=== PATIENT | female | born 1970 | race Caucasian/White ===

== ENCOUNTER 2017-04-24 17:48 | Emergency (ER) | payer BC ==
[2017-04-24 18:31] LABS: ALBUMIN 4.1 g/dL (3.2-5.5); ALBUMIN/GLOBULIN RATIO 1.1 (1.0-2.2); BILIRUBIN,TOTAL 1.4 mg/dL (0.2-1.0); CALCIUM 9.3 mg/dL (8.5-10.3); CREATININE 0.6 mg/dL (0.4-1.0); TOTAL PROTEIN 7.8 g/dL (6.7-8.2)
[2017-04-24 18:32] LABS: BASOPHILS % (AUTO) 0.5 %; EOSINOPHILS # (AUTO) 0.2 10^3/uL (0.0-0.7); EOSINOPHILS % (AUTO) 2.1 %; HGB - HEMOGLOBIN 14.3 g/dL (12.0-16.0); LYMPHOCYTES # (AUTO) 3.6 10^3/uL (1.5-3.5); LYMPHOCYTES % (AUTO) 45.3 %; MEAN CORPUSCULAR HEMOGLOBIN 30.1 pg (27.0-31.0); MEAN CORPUSCULAR HGB CONC 34.9 g/dL (32.0-36.0); MEAN CORPUSCULAR VOLUME 86.1 fL (81.0-99.0); MEAN PLATELET VOLUME 7.7 fL (7.9-10.8); MONOCYTES # (AUTO) 0.5 10^3/uL (0.0-1.0); MONOCYTES % (AUTO) 6.7 %; NEUTROPHILS # (AUTO) 3.6 10^3/uL (1.5-6.6); NEUTROPHILS % (AUTO) 45.4 %; PLT - PLATELET COUNT 363 10^3/uL (130-450); RED BLOOD COUNT 4.77 10^6/uL (4.20-5.40); WHITE BLOOD COUNT 7.9 x10^3/uL (4.8-10.8)
[2017-04-24 18:34] LABS: BILIRUBIN,URINE NEGATIVE (NEGATIVE); GLUCOSE, URINE (UA) NEGATIVE (NEGATIVE); KETONES,URINE (UA) NEGATIVE (NEGATIVE); LEUKOCYTE ESTERASE, URINE NEGATIVE (NEGATIVE); NITRITE,URINE NEGATIVE (NEGATIVE); OCCULT BLOOD,URINE NEGATIVE (NEGATIVE); PROTEIN,URINE NEGATIVE (NEGATIVE); UROBILINOGEN,URINE 0.2 (NORMAL) E.U./dL (NORMAL)
[2017-04-24 18:35] LABS: CLARITY,URINE CLEAR (CLEAR); HCG UR QUAL NEGATIVE
--- NOTE | 2017-04-24 20:46 | ED Physician Documentation ---
PD HPI ABD PAIN - Stated complaint Stated Complaint: BACK PX - Chief complaint Chief Complaint: Abd Pain - History obtained from History obtained from: Patient - History of Present Illness Timing - onset: How many weeks ago (1) Timing - details: Abrupt onset, Intermittant, Waxing and waning Quality: Pain Location: RUQ Radiation: Lower back Improved by: Other (no ameliorating factors) Worsened by: Other (no exacerbating factors) Associated symptoms: No: Fever, Nausea, Vomiting, Diarrhea, Constipation Similar symptoms before: No diagnosis Recently seen: Clinic (evaluated by PMD 1 week ago, US was recommended but patient opted to wait to see if symptoms improved without testing/treatment. she presents at this time due to worsening pain) Review of Systems Constitutional: reports: Reviewed and negative Cardiac: reports: Reviewed and negative Respiratory: reports: Reviewed and negative GI: reports: Abdominal Pain. denies: Nausea, Vomiting, Constipation, Diarrhea : denies: Dysuria, Frequency Skin: denies: Rash PD PAST MEDICAL HISTORY - Past Medical History Past Medical History: Yes Respiratory: Asthma - Past Surgical History Past Surgical History: No - Present Medications Home Medications: Ambulatory Orders Medication Instructions Recorded Confirmed Anxiety Med 04/24/17 Multivit with Iron-Minerals 1 each PO 04/24/17 [Cerovite Jr] traMADol [Ultram] 100 mg PO Q6H PRN #20 tablet 04/25/17 - Allergies Allergies/Adverse Reactions: Allergies Allergy/AdvReac Type Severity Reaction Status Date / Time Cephalosporins Allergy Rash Verified 04/24/17 17:58 ibuprofen [From Motrin] Allergy Unknown Verified 04/24/17 17:58 Sulfa (Sulfonamide Allergy Hives Verified 04/24/17 17:58 Antibiotics) - Social History Does the pt smoke?: No Smoking Status: Never smoker Does the pt drink ETOH?: No Does the pt have substance abuse?: No - Immunizations Immunizations are current?: Yes - POLST Patient has POLST: No PD ED PE NORMAL - Vitals Vital signs reviewed: Yes - General General: Alert and oriented X 3, No acute distress, Well developed/nourished - Cardiac Cardiac: RRR, No murmur - Respiratory Respiratory: No respiratory distress, Clear bilaterally - Abdomen Abdomen: Normal bowel sounds, Soft, Non tender, Non distended, No organomegaly - Back Back: No CVA TTP - Derm Derm: No rash Results - Vitals Vitals: Oxygen O2 Source Room air - Labs Labs: Laboratory Tests 04/24/17 04/24/17 04/24/17 18:06 18:10 18:10 WBC 7.9 RBC 4.77 Hgb 14.3 Hct 41.1 MCV 86.1 MCH 30.1 MCHC 34.9 RDW 13.0 Plt Count 363 MPV 7.7 L Neut # 3.6 Lymph # 3.6 H [place] # 0.5 Eos # 0.2 Baso # 0.0 Absolute Nucleated RBC 0.00 Nucleated RBC % 0.0 Sodium 136 Potassium 3.3 L Chloride 99 L Carbon Dioxide 27 Anion Gap 10.0 BUN 6 Creatinine 0.6 Estimated GFR (MDRD) 107 Glucose 93 Calcium 9.3 Total Bilirubin 1.4 H AST 32 ALT 34 Alkaline Phosphatase 60 Total Protein 7.8 Albumin 4.1 Globulin 3.7 Albumin/Globulin Ratio 1.1 Lipase 19 L Urine Color YELLOW Urine Clarity CLEAR Urine pH 6.0 Ur Specific [place] <=1.005 Urine Protein NEGATIVE Urine Glucose (UA) NEGATIVE Urine Ketones NEGATIVE Urine Occult Blood NEGATIVE Urine Nitrite NEGATIVE Urine Bilirubin NEGATIVE Urine Urobilinogen 0.2 (NORMAL) Ur Leukocyte Esterase NEGATIVE Ur Microscopic Review NOT INDICATED Urine Culture Comments NOT INDICATED Urine HCG, Qual NEGATIVE - Rads (name of study) RUQ US Radiology: Prelim report reviewed, See rad report PD MEDICAL DECISION MAKING - ED course Complexity details: reviewed results, re-evaluated patient, considered differential, d/w patient Departure - Departure Disposition: 01 Home, Self Care Clinical Impression: Abdominal pain Condition: Good Instructions: ED Abdominal Pain Unkn Cause Follow-Up: Dunia Dorman PA-C [Primary Care Provider] - Within 1 week Prescriptions: traMADol [Ultram] 100 mg PO Q6H PRN #20 tablet PRN Reason: Pain Discharge Date/Time: 04/25/17 00:17
[2017-04-24] MEDS ORDERED: traMADol 50 MG TABLET PO STA (22:05)
--- NOTE | 2017-04-24 23:30 | Ultrasound Report ---
EXAM: ABDOMEN ULTRASOUND LIMITED, RUQ EXAM DATE: 04/24/2017 10:41 PM. CLINICAL HISTORY: RUQ pain. COMPARISON: 05/14/2015 CT abdomen. TECHNIQUE: Real-time scanning was performed with static images obtained. FINDINGS: Liver: Normal in size and echotexture. 14.6 cm. Main portal vein flow: Hepatopetal. Gallbladder: There is a 3 mm gallbladder polyp. No gallstones, gallbladder wall thickening or pericho lecystic fluid collections. Biliary System: CBD measures 5 mm. No intrahepatic or extrahepatic ductal dilatation. Other: No right hydronephrosis. The visualized pancreas is unremarkable. IMPRESSION: 1. Gallbladder polyp. No evidence of cholecystitis or bile duct obstruction. [facility] Referring Provider Line: [phone] SITE ID: [id number]
[2017-04-25 00:17] VITALS: BP 132/89
== END 2017-04-25 00:17 | disposition home or self-care (01) ==
LOC: ED 17:48
DX: R10.31 Right lower quadrant pain (principal)
CPT/HCPCS: 36415; 76705; 80053; 81003; 81025; 83690; 85025; 99283; A9270; 81001; 87086

== ENCOUNTER 2017-05-24 09:05 | Outpatient (CLI) | payer BC ==
[2017-05-24] MEDS ORDERED: SINCALIDE 5 MCG VIAL ONE (09:51)
[2017-05-24] MEDS ORDERED: SINCALIDE IV ONE (10:39)
[2017-05-24] MEDS ORDERED: SODIUM CHLORIDE 0.9% IV ONE (10:39)
--- NOTE | 2017-05-24 17:15 | Nuclear Medicine Report ---
EXAM: HEPATOBILIARY SCAN WITH CCK/KINEVAC ADMINISTRATION EXAM DATE: 05/24/2017 12:34 PM. CLINICAL HISTORY: ABDOMINAL PAIN, RUQ. COMPARISON: None. TECHNIQUE: Following the intravenous administration of 5.3 mCi of Tc99m Mebrofenin, a hepatobiliary s can was done centered on the liver and gallbladder in multiple sequential images and projections. Following the intravenous administration of 1.4 mcg of CCK/ Kinevac over the course of approximately 60 minutes, dynamic imaging was done and the gallbladder ejection fraction was calculated. FINDINGS: Normal extraction of tracer from the blood pool indicating normal hepatocellular function. The liver size and shape is grossly within normal limits. Appearance of tracer in the biliary tree as early as 10 minutes, within normal limits. Appearance of tracer in the gallbladder as early as 15 minutes, within normal limits, with good progr ession of filling throughout the remainder of the initial hour. Appearance of tracer in the small bowel approximately 15 minutes following initiation of CCK administ ration. With CCK administration, the gallbladder demonstrates an effective contraction. The gallbladder eject ion fraction is calculated to be 88%, well above the lower limit of normal of 38% for a 60-minute inj ection. No evidence of enteric reflux into the stomach. No significant collection of tracer remaining in the common bile duct by the end of the study. IMPRESSION: 1. No scintigraphic evidence of acute cholecystitis. 2. Patent common bile duct. 3. Gallbladder ejection fraction is in the normal range. 4. Mildly delayed biliary-bowel transit. This is a nonspecific finding that can be seen in a subset o f normal patients but could reflect a component of distal functional or mechanical obstruction. [facility] Referring Provider Line: [phone] SITE ID: [id number]
== END 2017-05-24 09:06 | disposition home or self-care (01) ==
LOC: DI 09:05
PROVIDERS: ATTEND Physician Assistant Medical
DX: R10.11 Right upper quadrant pain (principal)
CPT/HCPCS: 78227; A9537; J7040

== ENCOUNTER 2017-12-01 08:20 | Outpatient (CLI) | payer BC ==
[2017-12-01 12:18] LABS: BASOPHILS % (AUTO) 0.5 %; EOSINOPHILS # (AUTO) 0.3 10^3/uL (0.0-0.7); HGB - HEMOGLOBIN 13.8 g/dL (12.0-16.0); LYMPHOCYTES # (AUTO) 2.4 10^3/uL (1.5-3.5); LYMPHOCYTES % (AUTO) 36.8 %; MEAN CORPUSCULAR HEMOGLOBIN 29.7 pg (27.0-31.0); MEAN CORPUSCULAR HGB CONC 34.5 g/dL (32.0-36.0); MEAN CORPUSCULAR VOLUME 86.3 fL (81.0-99.0); MEAN PLATELET VOLUME 7.9 fL (7.9-10.8); MONOCYTES # (AUTO) 0.5 10^3/uL (0.0-1.0); MONOCYTES % (AUTO) 7.5 %; NEUTROPHILS # (AUTO) 3.2 10^3/uL (1.5-6.6); NEUTROPHILS % (AUTO) 50.2 %; PLT - PLATELET COUNT 396 10^3/uL (130-450); RED BLOOD COUNT 4.64 10^6/uL (4.20-5.40); RED CELL DISTRIBUTION WIDTH 13.2 % (12.0-15.0); WHITE BLOOD COUNT 6.4 x10^3/uL (4.8-10.8)
[2017-12-01 12:55] LABS: ALBUMIN 3.9 g/dL (3.2-5.5); ALBUMIN/GLOBULIN RATIO 1.1 (1.0-2.2); ALKALINE PHOSPHATASE 70 IU/L (42-121); ALT ALANINE AMINOTRANSFERASE 18 IU/L (10-60); AST ASPARTATE AMINOTRANSFERASE 18 IU/L (10-42); BILIRUBIN,TOTAL 1.6 mg/dL (0.2-1.0); BUN - BLOOD UREA NITROGEN 8 mg/dL (6-20); CALCIUM 8.9 mg/dL (8.5-10.3); CARBON DIOXIDE - CO2 27 mmol/L (21-32); CHLORIDE 100 mmol/L (101-111); CHOL/HDL RATIO 4.1 (<4.4); CHOLESTEROL 223 mg/dL; CREATININE 0.6 mg/dL (0.4-1.0); GFR - MDRD 107 (>89); GLUCOSE 113 mg/dL (70-100); HDL CHOLESTEROL 54 mg/dL; LDL CHOLESTEROL,CALCULATED 141 mg/dL; LDL/HDL RATIO 2.6 (<4.4); SODIUM 134 mmol/L (135-145); TOTAL PROTEIN 7.3 g/dL (6.7-8.2); VLDL CHOLESTEROL 28 mg/dL
== END 2017-12-01 08:21 | disposition home or self-care (01) ==
LOC: LAB.WCP 08:20
PROVIDERS: ATTEND Physician Assistant Medical
DX: Z00.00 Encounter for general adult medical examination without abnormal findings (principal)
CPT/HCPCS: 36415; 80053; 80061; 83721; 84443; 85025

== ENCOUNTER 2019-01-11 07:45 | Outpatient (CLI) | payer BC ==
[2019-01-11 12:53] LABS: BASOPHILS # (AUTO) 0.1 10^3/uL (0.0-0.1); BASOPHILS % (AUTO) 1.1 %; EOSINOPHILS # (AUTO) 0.3 10^3/uL (0.0-0.7); EOSINOPHILS % (AUTO) 5.8 %; HGB - HEMOGLOBIN 11.4 g/dL (12.0-16.0); LYMPHOCYTES # (AUTO) 2.1 10^3/uL (1.5-3.5); LYMPHOCYTES % (AUTO) 37.5 %; MEAN CORPUSCULAR HEMOGLOBIN 23.9 pg (27.0-31.0); MEAN CORPUSCULAR HGB CONC 29.8 g/dL (32.0-36.0); MEAN CORPUSCULAR VOLUME 80.3 fL (81.0-99.0); MEAN PLATELET VOLUME 9.5 fL (7.9-10.8); MONOCYTES # (AUTO) 0.4 10^3/uL (0.0-1.0); MONOCYTES % (AUTO) 6.3 %; NEUTROPHILS # (AUTO) 2.8 10^3/uL (1.5-6.6); NEUTROPHILS % (AUTO) 48.9 %; PLT - PLATELET COUNT 510 10^3/uL (130-450); RED BLOOD COUNT 4.76 10^6/uL (4.20-5.40); WHITE BLOOD COUNT 5.7 x10^3/uL (4.8-10.8)
[2019-01-11 13:23] LABS: ALBUMIN 3.6 g/dL (3.2-5.5); ALBUMIN/GLOBULIN RATIO 0.9 (1.0-2.2); ALKALINE PHOSPHATASE 71 IU/L (42-121); ALT ALANINE AMINOTRANSFERASE 27 IU/L (10-60); AST ASPARTATE AMINOTRANSFERASE 24 IU/L (10-42); BILIRUBIN,TOTAL 0.7 mg/dL (0.2-1.0); BUN - BLOOD UREA NITROGEN 10 mg/dL (6-20); CARBON DIOXIDE - CO2 28 mmol/L (21-32); CHLORIDE 102 mmol/L (101-111); CHOL/HDL RATIO 4.6 (<4.4); CHOLESTEROL 251 mg/dL; CREATININE 0.6 mg/dL (0.4-1.0); GFR - MDRD 106 (>89); GLUCOSE 106 mg/dL (70-100); HDL CHOLESTEROL 54 mg/dL; LDL CHOLESTEROL,CALCULATED 157 mg/dL; LDL/HDL RATIO 2.9 (<4.4); SODIUM 139 mmol/L (135-145); TOTAL PROTEIN 7.6 g/dL (6.7-8.2); VLDL CHOLESTEROL 40 mg/dL
== END 2019-01-11 23:59 | disposition home or self-care (01) ==
LOC: LAB.WCP 07:45
PROVIDERS: ATTEND Physician Assistant Medical
DX: Z00.00 Encounter for general adult medical examination without abnormal findings (principal); R73.9 Hyperglycemia, unspecified
CPT/HCPCS: 36415; 80053; 80061; 83721; 84443; 85025

== ENCOUNTER 2019-05-21 17:42 | Outpatient (CLI) | payer OTHER | END 2019-05-21 17:43 | disposition home or self-care (01) | LOC: COV 17:42 | PROVIDERS: ATTEND Family Medicine | DX: R05 Cough (principal); R50.9 Fever, unspecified | CPT/HCPCS: 81599 ==

== ENCOUNTER 2019-07-19 08:00 | Outpatient (CLI) | payer OTHER ==
[2019-07-19 18:12] LABS: BASOPHILS # (AUTO) 0.1 10^3/uL (0.0-0.1); BASOPHILS % (AUTO) 0.7 %; EOSINOPHILS # (AUTO) 0.4 10^3/uL (0.0-0.7); EOSINOPHILS % (AUTO) 4.9 %; HGB - HEMOGLOBIN 11.5 g/dL (12.0-16.0); LYMPHOCYTES # (AUTO) 3.1 10^3/uL (1.5-3.5); LYMPHOCYTES % (AUTO) 42.6 %; MEAN CORPUSCULAR HGB CONC 30.4 g/dL (32.0-36.0); MEAN CORPUSCULAR VOLUME 78.8 fL (81.0-99.0); MEAN PLATELET VOLUME 9.6 fL (7.9-10.8); MONOCYTES # (AUTO) 0.5 10^3/uL (0.0-1.0); MONOCYTES % (AUTO) 7.1 %; NEUTROPHILS # (AUTO) 3.2 10^3/uL (1.5-6.6); NEUTROPHILS % (AUTO) 44.6 %; PLT - PLATELET COUNT 500 10^3/uL (130-450); RED CELL DISTRIBUTION WIDTH 16.7 % (12.0-15.0); WHITE BLOOD COUNT 7.2 x10^3/uL (4.8-10.8)
[2019-07-19 19:00] LABS: THYROID STIMULATING HORMONE 0.84 uIU/mL (0.34-5.60)
[2019-07-19 19:02] LABS: FREE T4 (FREE THYROXINE) 0.99 ng/dL (0.58-1.64)
[2019-07-19 19:06] LABS: FERRITIN 5.3 ng/mL (11.0-306.8)
[2019-07-19 19:28] LABS: FOLLICLE STIMULATING HORMONE 41.9 mIU/mL
== END 2019-07-19 23:59 | disposition home or self-care (01) ==
LOC: LAB.WCP 08:00
PROVIDERS: ATTEND Physician Assistant
DX: R53.83 Other fatigue (principal)
CPT/HCPCS: 36415; 82670; 82728; 83001; 84439; 84443; 85025

== ENCOUNTER 2019-12-05 07:10 | Outpatient (CLI) | payer OTHER ==
--- NOTE | 2019-12-05 09:34 | Ultrasound Report ---
PROCEDURE: Abdomen Limited INDICATIONS: RUQ ABDOMINAL PAIN TECHNIQUE: Real-time focused scanning was performed of the abdomen, with image documentation. COMPARISON: 04/24/2017 abdominal ultrasound, 05/14/2015 CT abdomen and pelvis FINDINGS: Liver is normal in size with normal hepatic parenchymal echogenicity, echotexture, and contour. No fo martín hepatic mass. No intrahepatic biliary ductal dilatation. The common bile duct is normal in caliber. The gallbladder appears normally distended without wall thickening or pericholecystic fluid. There is no shadowing gallstone or sludge. Normal appearance of the visualized pancreatic head and body. The tail is partially visualized and gr ossly unremarkable also. 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 There is also a 1.3 cm simple appearing cyst in the interpolar region on the right. No shadowing calculus or hydronephros is. IMPRESSION: Unremarkable right upper quadrant abdominal ultrasound. Reviewed by: Bart Christie MD on 12/05/2019 9:32 AM PDT Approved by: Bart Christie MD on 12/05/2019 9:32 AM PDT Station ID: [id number]
== END 2019-12-05 07:11 | disposition home or self-care (01) ==
LOC: DI 07:10
PROVIDERS: ATTEND Surgery
DX: R10.11 Right upper quadrant pain (principal)
CPT/HCPCS: 76705

== ENCOUNTER 2019-12-23 07:00 | Outpatient (CLI) | payer OTHER ==
[2019-12-23 20:09] LABS: BASOPHILS # (AUTO) 0.1 10^3/uL (0.0-0.1); BASOPHILS % (AUTO) 0.5 %; EOSINOPHILS # (AUTO) 0.3 10^3/uL (0.0-0.7); HGB - HEMOGLOBIN 14.4 g/dL (12.0-16.0); LYMPHOCYTES # (AUTO) 2.8 10^3/uL (1.5-3.5); LYMPHOCYTES % (AUTO) 25.6 %; MEAN CORPUSCULAR HEMOGLOBIN 29.3 pg (27.0-31.0); MEAN CORPUSCULAR HGB CONC 32.9 g/dL (32.0-36.0); MEAN CORPUSCULAR VOLUME 89.2 fL (81.0-99.0); MEAN PLATELET VOLUME 9.9 fL (7.9-10.8); MONOCYTES # (AUTO) 0.7 10^3/uL (0.0-1.0); MONOCYTES % (AUTO) 6.6 %; NEUTROPHILS % (AUTO) 63.8 %; PLT - PLATELET COUNT 390 10^3/uL (130-450); RED BLOOD COUNT 4.91 10^6/uL (4.20-5.40); RED CELL DISTRIBUTION WIDTH 13.2 % (12.0-15.0)
[2019-12-23 20:13] LABS: ALBUMIN 3.8 g/dL (3.2-5.5); ALBUMIN/GLOBULIN RATIO 1.1 (1.0-2.2); BILIRUBIN,TOTAL 0.9 mg/dL (0.2-1.0); CALCIUM 8.6 mg/dL (8.5-10.3); CREATININE 0.5 mg/dL (0.4-1.0); TOTAL PROTEIN 7.4 g/dL (6.7-8.2)
== END 2019-12-23 23:59 | disposition home or self-care (01) ==
LOC: DI.S 07:00
PROVIDERS: ATTEND Physician Assistant Medical
DX: R05 Cough (principal); R06.02 Shortness of breath; B97.89 Other viral agents as the cause of diseases classified elsewhere; Z20.828 Contact with and (suspected) exposure to other viral communicable diseases
CPT/HCPCS: 36415; 80053; 85025; 87275; 87276

== ENCOUNTER 2020-02-18 11:29 | Outpatient (CLI) | payer OTHER ==
--- NOTE | 2020-02-19 15:03 | Mammography Report ---
BILATERAL DIGITAL SCREENING MAMMOGRAM 3D/2D: 02/18/2020 CLINICAL: Routine screening. Comparison is made to exams dated: 02/16/2016 mammogram, 01/21/2015 mammogram, 01/07/2014 mammogram, 10/25/2012 mammogram, 09/21/2011 mammogram, and 09/20/2010 mammogram - [facility]. T here are scattered fibroglandular elements in both breasts. No significant masses, calcifications, or other findings are seen in either breast. There has been no significant interval change. IMPRESSION: NEGATIVE There is no mammographic evidence of malignancy. A 1 year screening mammogram is recommended. This exam was interpreted at Station ID: [id number]. NOTE: For mammograms, a report in lay terms will be sent to the patient. Approximately 15% of breast malignancies will not be visualized mammographically. In the management of a palpable breast mass, a negative mammogram must not discourage biopsy of a clinically suspicious lesion. Electronically Signed By: Demarco Rogers acr/penrad:02/18/2020 12:54:41 ACR BI-RADS Category 1: Negative 3341F PARENCHYMAL PATTERN: (A) - The breast(s) demonstrate(s) scattered fibroglandular densities. BI-RADS CATEGORY: (1) - 1 RECOMMENDATION: (ANNUAL) - Recommend routine annual screening mammography. [id number] 1 year screening LATERALITY: (B)
== END 2020-02-18 11:30 | disposition home or self-care (01) ==
LOC: DI.N 11:29
DX: Z12.31 Encounter for screening mammogram for malignant neoplasm of breast (principal)
CPT/HCPCS: 77067

== ENCOUNTER 2021-03-25 18:56 | Outpatient (CLI) | payer OTHER ==
--- NOTE | 2021-03-26 18:25 | Ultrasound Report ---
PROCEDURE: Pelvic w/Transvaginal INDICATIONS: SUPRAUBIC PAIN. Last menstrual period 03/08/2021 TECHNIQUE: Real-time scanning was performed of the pelvic organs, with image documentation. Additional endovagi nal scanning was necessary due to incomplete visualization of the adnexal and endometrial structures by transabdominal scanning. COMPARISON: None. FINDINGS: No pathologic free abdominal or pelvic fluid. Uterus: Uterus is normal in size at 8.9 x 4.8 x 5.8 cm. It has a heterogeneous echo pattern. The en dometrium measures 13 mm in combined thickness. Ovaries: Right ovary measures 2.8 x 2.1 x 3.2 cm with a volume of 9.6 mL. It contains a 1.7 cm maxim um diameter cyst. Left ovary measures 2.6 x 2.2 x 1.9 cm. Its volume is 5.7 mL. And has a 1.2 cm maxi mum diameter cyst. IMPRESSION: 1. Endometrial complex measures 13 mm. This is within normal limits for a premenopausal female. If sh e is postmenopausal, this would be abnormal. 2. No other significant findings. Comment: Consider repeat ultrasound in approximately 6 weeks to demonstrate thinning of the endometri um. Reviewed by: Avery Pereira MD on 03/26/2021 6:23 PM PST Approved by: Avery Pereira MD on 03/26/2021 6:23 PM PST Station ID: [id number]
== END 2021-03-25 18:57 | disposition home or self-care (01) ==
LOC: DI 18:56
PROVIDERS: ATTEND Physician Assistant Medical
DX: R10.30 Lower abdominal pain, unspecified (principal); N83.201 Unspecified ovarian cyst, right side; N83.202 Unspecified ovarian cyst, left side

== ENCOUNTER 2021-03-28 08:00 | Outpatient (CLI) | payer OTHER ==
[2021-03-28 18:00] LABS: FECAL OCCULT BLOOD (FIT) NEGATIVE (NEGATIVE)
== END 2021-03-28 23:59 ==
LOC: LAB 08:00
PROVIDERS: ATTEND Physician Assistant Medical
DX: K92.1 Melena (principal)
CPT/HCPCS: 82274

== ENCOUNTER 2021-07-01 08:00 | Outpatient (CLI) | payer OTHER | END 2021-07-02 11:12 | disposition home or self-care (01) | LOC: LAB.N 08:00 | PROVIDERS: ATTEND Family Medicine | DX: J06.9 Acute upper respiratory infection, unspecified (principal); Z20.822 Contact with and (suspected) exposure to COVID-19 ==

== ENCOUNTER 2022-06-17 16:53 | Outpatient (CLI) | payer OTHER ==
--- NOTE | 2022-06-18 00:59 | Ultrasound Report ---
PROCEDURE: Pelvic w/Transvaginal INDICATIONS: DUB TECHNIQUE: Real-time scanning was performed of the pelvic organs, with image documentation. Additional endovagi nal scanning was necessary due to incomplete visualization of the adnexal and endometrial structures by transabdominal scanning. COMPARISON: None. FINDINGS: Uterus: 9.2 x 4.2 x 5.5 cm. Endometrium measures 10 mm, slightly greater than before. Focal hyperecho ic region is seen in the mid endometrium measuring 1 x 0.9 cm. Anteverted position. Ovaries: Measured on transabdominal images, 2 x 1.8 cm on the right and 2.3 x 1 x 2.2 cm on the left. These are not well seen. Other: No pathologic free fluid. IMPRESSION: Endometrium is slightly thinner than prior imaging, measuring 10 mm, within normal limits if the filipe ent is not postmenopausal. In the mid endometrial region, possible polyp versus submucosal fibroid, less likely debris, measurin g 1 x 0.9 cm. Consider repeat ultrasound, pelvic MRI or direct visualization for further evaluation i f necessary. Reviewed by: Carlos Barboza MD on 06/18/2022 12:58 AM PDT Approved by: Carlos Barboza MD on 06/18/2022 12:58 AM PDT Station ID: [id number]
== END 2022-06-17 16:54 | disposition home or self-care (01) ==
LOC: DI 16:53
PROVIDERS: ATTEND Nurse Practitioner
DX: N93.8 Other specified abnormal uterine and vaginal bleeding (principal)

== ENCOUNTER 2023-01-18 08:00 | Outpatient (CLI) | payer OTHER ==
[2023-01-19 05:57] LABS: BACTERIAL VAGINOSIS DNA NEGATIVE (NEGATIVE); CANDIDA GLABRATA DNA NEGATIVE (NEGATIVE); CANDIDA GROUP DNA NEGATIVE (NEGATIVE); CANDIDA KRUSEI DNA NEGATIVE (NEGATIVE); TRICHOMONAS VAGINALIS DNA NEGATIVE (NEGATIVE)
== END 2023-01-18 23:59 | disposition home or self-care (01) ==
LOC: LAB.N 08:00
PROVIDERS: ATTEND Physician Assistant Medical
DX: R35.0 Frequency of micturition (principal)
CPT/HCPCS: 81514; 87086

== ENCOUNTER 2023-04-12 09:15 | Outpatient (CLI) | payer OTHER ==
--- NOTE | 2023-04-12 10:58 | XRAY Report ---
PROCEDURE: Ribs w/PA Chest 3+V RT INDICATIONS: RIGHT SIDED RIB PAIN TECHNIQUE: 3 views of the ribs were acquired, along with a single view chest. COMPARISON: None. FINDINGS: Surgical changes and devices: None. Bones and chest wall: No displaced fracture or dislocation. Lungs and pleura: No dense consolidation or pleural effusion. Mediastinum: Normal heart size IMPRESSION: No displaced rib fracture. If there is high concern for occult injury, consider repeat radiography or cross-sectional imaging. Reviewed by: Carlos Barboza MD on 04/12/2023 10:56 AM [facility] Approved by: Carlos Barboza MD on 04/12/2023 10:56 AM PST Station ID: [id number]
--- NOTE | 2023-04-12 10:59 | XRAY Report ---
PROCEDURE: Elbow 3+V LT INDICATIONS: CONTUSION OF LEFT ELBOW TECHNIQUE: 3 views of the elbow were acquired. COMPARISON: None. FINDINGS: Bones: No displaced fracture or dislocation. Soft tissues: No suspicious calcifications. IMPRESSION: No acute radiographic abnormality in the bones. If there is high concern for occult injury, consider repeat radiography or cross-sectional imaging. Reviewed by: Carlos Barboza MD on 04/12/2023 10:58 AM [facility] Approved by: Carlos Barboza MD on 04/12/2023 10:58 AM [facility] Station ID: [id number]
== END 2023-04-12 09:30 | disposition home or self-care (01) ==
LOC: DI.N 09:15
PROVIDERS: ATTEND Family Medicine
DX: S50.02XA Contusion of left elbow, initial encounter (principal); R07.81 Pleurodynia